=== PATIENT | female | born 1965 | race African-American/Black ===

== ENCOUNTER 2024-12-13 14:24 | Outpatient (CLI) | payer OTHER | END 2024-12-13 14:25 | disposition home or self-care (01) | LOC: CSHCP 14:24 | PROVIDERS: ATTEND Internal Medicine | DX: J84.10 Pulmonary fibrosis, unspecified (principal); J98.4 Other disorders of lung | CPT/HCPCS: 94060; 94664; 94726; 94729; 94760 ==